=== PATIENT | male | born 1970 | race African-American/Black ===

== ENCOUNTER 2022-07-15 20:45 | Inpatient (IN) | payer BC ==
[2022-07-15] MEDS ORDERED: ACETAMINOPHEN 1000 MG/100 ML BAG IVPB ONE (22:25)
[2022-07-15] MEDS ORDERED: SODIUM CHLORIDE 1,000 ML IV STA (22:25)
[2022-07-15] MEDS ORDERED: ACETAMINOPHEN INJECTION 100 ML IVPB ONE (22:35)
[2022-07-15 22:42] LABS: BASO % 0.2 % (0-2.0); HEMATOCRIT 50.7 % (35.4-49); HEMOGLOBIN 16.3 GM/dL (11.7-16.9); MCH 26.9 pg (25.7-33.7); MCHC 32.1 g/dl (32.0-35.9); MEAN CELL VOLUME 83.8 fl (80-96); MEAN PLT VOLUME 9.3 fl (7.5-11.1); MONO % 7.7 % (3.8-10.2); NEUT % 86.1 % (42.8-82.8); PLATELET COUNT 282 10^3/uL (134-434); RBC 6.05 M/mm3 (4.00-5.60); RDW 14.9 % (11.9-15.9); WHITE BLOOD COUNT 15.1 K/mm3 (4.0-10.0)
[2022-07-15 23:04] LABS: ALBUMIN 3.2 g/dl (3.4-5.0); BLOOD UREA NITROGEN 24.8 mg/dL (7-18); CALCIUM 9.6 mg/dL (8.5-10.1)
[2022-07-15 23:08] LABS: CREATININE 1.8 mg/dL (0.55-1.3)
[2022-07-15 23:10] LABS: BILIRUBIN,TOTAL 0.9 mg/dL (0.2-1); TOT PROT 7.8 g/dl (6.4-8.2)
[2022-07-15 23:38] LABS: ANISOCYTOSIS 1+; MACROCYTOSIS 0; TEAR DROP CELLS 2+
[2022-07-16] MEDS ORDERED: SODIUM CHLORIDE 1,000 ML IV SCH (01:15)
[2022-07-16 01:39] LABS: INR 1.33 (0.83-1.09); PROTHROMBIN TIME (PATIENT) 15.4 SEC (9.7-13.0)
[2022-07-16 01:44] LABS: EPI CELLS >36 /uL (0-25.1); HYALINE CASTS 77 /uL (0-3.1); URINE APPEARANCE TURBID; URINE BILIRUBIN 1+ (NEGATIVE); URINE COLOR ORANGE; URINE GLUCOSE (UA) NEGATIVE (NEGATIVE); URINE KETONE TRACE (NEGATIVE); URINE LEUK ESTERASE TRACE (NEGATIVE); URINE NITRITE NEGATIVE (NEGATIVE); URINE PROTEIN 2+ (NEGATIVE); URINE WBC 127 /uL (0-25.8)
[2022-07-16] MEDS ORDERED: LACTATED RINGERS SOLUTION 1,000 ML IV SCH ×3 (03:30→13:47)
[2022-07-16 05:18] VITALS: BMI 49.1
[2022-07-16] MEDS ORDERED: HEPARIN NA (PORCINE) 5,000 UNITS/ML 1ML VIAL SQ SCH (06:00)
[2022-07-16] MEDS: INSULIN SLIDING SCALE (NOVOLOG) 1 VIAL SQ SCH ×4 (06:14→21:24)
[2022-07-16] MEDS ORDERED: ONDANSETRON 4 MG/2 ML VIAL IVPUSH PRN ×2 (08:24→13:47)
[2022-07-16] MEDS ORDERED: PROMETHAZINE HCL 25 MG/1 ML VIAL IVPB PRN ×2 (08:24→13:47)
[2022-07-16] MEDS ORDERED: ROCURONIUM BROMIDE 50 MG/5 ML SYRINGE ONE ×2 (08:37→11:23)
[2022-07-16] MEDS ORDERED: MIDAZOLAM HCL 2 MG/2 ML SINGLE DOSE VIAL ONE (08:37)
[2022-07-16] MEDS ORDERED: PROPOFOL 20 ML ONE ×3 (08:37→12:20)
[2022-07-16] MEDS ORDERED: GLYCOPYRROLATE 0.2 MG/1 ML VIAL ONE ×2 (08:39→12:03)
[2022-07-16 08:46] LABS: URINE BACTERIA MODERATE /uL (0-1359); URINE RBC 32 /uL (0-23.9)
[2022-07-16] MEDS ORDERED: BUPIVACAINE HCL/PF 0.5% (5MG/ML) 10 ML VIAL ONE (08:51)
[2022-07-16] MEDS ORDERED: cefOXitin SODIUM 2 GM VIAL (RESTRICTED TO ID) IVPB ONE ×2 (09:27→09:50)
[2022-07-16] MEDS ORDERED: SODIUM CHLORIDE 0.9% P/F 10 ML VIAL IJ ONE (09:50)
[2022-07-16] MEDS ORDERED: DEXAMETHASONE SOD PHOSPHATE 4 MG/1 ML VIAL ONE (09:55)
[2022-07-16] MEDS ORDERED: ONDANSETRON 4 MG/2 ML VIAL ONE (09:55)
[2022-07-16] MEDS ORDERED: NEOSTIGMINE METHYLSULFATE 0.5 MG/1 ML - 10 ML MDV ONE (12:04)
[2022-07-16] MEDS ORDERED: NALOXONE HCL 0.4 MG/ML VIAL ONE (12:04)
[2022-07-16] MEDS ORDERED: ACETAMINOPHEN INJECTION 100 ML IVPB ONE (12:05)
[2022-07-16] MEDS ORDERED: BUPIVACAINE HCL/PF 0.5% (5MG/ML) 10 ML VIAL IJ ONE ×2 (12:36)
[2022-07-16] MEDS ORDERED: DOCUSATE SODIUM 100 MG CAPSULE (FP) PO PRN (13:11)
[2022-07-16 15:33] LABS: HEMATOCRIT 43.7 % (35.4-49); HEMOGLOBIN 14.3 GM/dL (11.7-16.9); MCH 27.4 pg (25.7-33.7); MCHC 32.7 g/dl (32.0-35.9); MEAN CELL VOLUME 83.7 fl (80-96); PLATELET COUNT 247 10^3/uL (134-434); RBC 5.22 M/mm3 (4.00-5.60); RDW 15.1 % (11.9-15.9); WHITE BLOOD COUNT 6.5 K/mm3 (4.0-10.0)
[2022-07-16] MEDS: SODIUM CHLORIDE 1,000 ML IV SCH (15:42)
[2022-07-16 15:54] LABS: CALCIUM 8.2 mg/dL (8.5-10.1)
[2022-07-16 15:56] LABS: BLOOD UREA NITROGEN 25.7 mg/dL (7-18)
[2022-07-16] MEDS: oxyCODONE HCL 5 MG TABLET PO PRN ×2 (15:58→20:36)
[2022-07-16 15:59] LABS: CREATININE 1.2 mg/dL (0.55-1.3)
[2022-07-16] MEDS: ACETAMINOPHEN 1000 MG/100 ML BAG IVPB SCH (18:30)
[2022-07-17] MEDS: ACETAMINOPHEN 1000 MG/100 ML BAG IVPB SCH ×4 (00:52→18:14)
[2022-07-17] MEDS: SODIUM CHLORIDE 1,000 ML IV SCH ×3 (03:16→22:53)
[2022-07-17] MEDS: INSULIN SLIDING SCALE (NOVOLOG) 1 VIAL SQ SCH ×4 (06:07→21:34)
[2022-07-17] MEDS: TAMSULOSIN HCL 0.4 MG CAP PO SCH (07:56)
[2022-07-17] MEDS: oxyCODONE HCL 5 MG TABLET PO PRN ×3 (08:00→21:27)
[2022-07-17 10:43] LABS: HEMATOCRIT 42.2 % (35.4-49); HEMOGLOBIN 14.1 GM/dL (11.7-16.9); MCH 27.7 pg (25.7-33.7); MCHC 33.3 g/dl (32.0-35.9); MEAN CELL VOLUME 83.1 fl (80-96); MEAN PLT VOLUME 9.3 fl (7.5-11.1); PLATELET COUNT 299 10^3/uL (134-434); RBC 5.08 M/mm3 (4.00-5.60); RDW 15.5 % (11.9-15.9); WHITE BLOOD COUNT 9.8 K/mm3 (4.0-10.0)
[2022-07-17 10:44] LABS: BLOOD UREA NITROGEN 19.2 mg/dL (7-18); CALCIUM 8.4 mg/dL (8.5-10.1); MAGNESIUM 2.5 mg/dL (1.8-2.4)
[2022-07-17 10:48] LABS: PHOSPHOROUS 2.1 mg/dL (2.5-4.9); TOT PROT 6.5 g/dl (6.4-8.2)
[2022-07-17 10:50] LABS: BILIRUBIN,TOTAL 1.3 mg/dL (0.2-1)
[2022-07-17 10:51] LABS: ALBUMIN 2.5 g/dl (3.4-5.0)
[2022-07-17] MEDS: NYSTATIN 100000 UNIT/GM TOPICAL OINTMENT 15 GM TUBE TP SCH ×3 (11:58→21:33)
[2022-07-17] MEDS ORDERED: POTASSIUM PHOSPHATE 30 MM in SODIUM CHLORIDE 500 ML IVPB ONE (14:15)
[2022-07-17] MEDS: HEPARIN NA (PORCINE) 5,000 UNITS/ML 1ML VIAL SQ SCH (21:27)
[2022-07-18] MEDS: ACETAMINOPHEN 1000 MG/100 ML BAG IVPB SCH ×4 (00:09→19:51)
[2022-07-18] MEDS: oxyCODONE HCL 5 MG TABLET PO PRN ×4 (02:32→17:01)
[2022-07-18] MEDS ORDERED: TRIMETHOBENZAMIDE HCL 200MG/2ML INJ IM ONE (02:32)
[2022-07-18] MEDS: INSULIN SLIDING SCALE (NOVOLOG) 1 VIAL SQ SCH ×4 (06:01→21:16)
[2022-07-18] MEDS: TAMSULOSIN HCL 0.4 MG CAP PO SCH (09:58)
[2022-07-18] MEDS: HEPARIN NA (PORCINE) 5,000 UNITS/ML 1ML VIAL SQ SCH ×2 (09:58→21:11)
[2022-07-18 10:47] LABS: HEMATOCRIT 44.8 % (35.4-49); HEMOGLOBIN 14.4 GM/dL (11.7-16.9); MCHC 32.2 g/dl (32.0-35.9); MEAN CELL VOLUME 83.8 fl (80-96); PLATELET COUNT 354 10^3/uL (134-434); RBC 5.35 M/mm3 (4.00-5.60); RDW 15.4 % (11.9-15.9); WHITE BLOOD COUNT 12.3 K/mm3 (4.0-10.0)
[2022-07-18 11:12] LABS: ALBUMIN 2.5 g/dl (3.4-5.0); CALCIUM 8.7 mg/dL (8.5-10.1); MAGNESIUM 2.8 mg/dL (1.8-2.4)
[2022-07-18 11:16] LABS: BILIRUBIN,TOTAL 0.8 mg/dL (0.2-1); CREATININE 0.8 mg/dL (0.55-1.3)
[2022-07-18] MEDS: NYSTATIN 100000 UNIT/GM TOPICAL OINTMENT 15 GM TUBE TP SCH ×2 (11:17→21:16)
[2022-07-18 11:18] LABS: TOT PROT 6.7 g/dl (6.4-8.2)
[2022-07-18] MEDS ORDERED: NAPH,MB-DB/K PH,MBDB POWDER PACKET PO ONE (12:30)
[2022-07-19] MEDS: ACETAMINOPHEN 1000 MG/100 ML BAG IVPB SCH ×4 (00:08→20:49)
[2022-07-19] MEDS: INSULIN SLIDING SCALE (NOVOLOG) 1 VIAL SQ SCH ×4 (06:09→21:56)
[2022-07-19 08:40] LABS: HEMATOCRIT 43.4 % (35.4-49); HEMOGLOBIN 14.3 GM/dL (11.7-16.9); MCH 27.3 pg (25.7-33.7); MCHC 32.8 g/dl (32.0-35.9); MEAN CELL VOLUME 83.2 fl (80-96); MEAN PLT VOLUME 9.5 fl (7.5-11.1); PLATELET COUNT 367 10^3/uL (134-434); RBC 5.22 M/mm3 (4.00-5.60); RDW 15.2 % (11.9-15.9); WHITE BLOOD COUNT 12.8 K/mm3 (4.0-10.0)
[2022-07-19] MEDS: TAMSULOSIN HCL 0.4 MG CAP PO SCH (08:55)
[2022-07-19] MEDS: HEPARIN NA (PORCINE) 5,000 UNITS/ML 1ML VIAL SQ SCH ×2 (09:00→21:57)
[2022-07-19] MEDS: NYSTATIN 100000 UNIT/GM TOPICAL OINTMENT 15 GM TUBE TP SCH ×2 (09:01→22:36)
[2022-07-19 09:09] LABS: ALBUMIN 2.5 g/dl (3.4-5.0); BLOOD UREA NITROGEN 14.2 mg/dL (7-18); CALCIUM 8.5 mg/dL (8.5-10.1); MAGNESIUM 2.7 mg/dL (1.8-2.4)
[2022-07-19 09:13] LABS: CREATININE 0.8 mg/dL (0.55-1.3); PHOSPHOROUS 1.9 mg/dL (2.5-4.9); TOT PROT 6.3 g/dl (6.4-8.2)
[2022-07-19 09:14] LABS: BILIRUBIN,TOTAL 0.7 mg/dL (0.2-1)
[2022-07-19 09:26] LABS: ANISOCYTOSIS 0; MACROCYTOSIS 0
[2022-07-19] MEDS: NAPH,MB-DB/K PH,MBDB POWDER PACKET PO SCH ×2 (10:25→21:54)
[2022-07-19] MEDS ORDERED: INSULIN (NOVOLOG) ASPART 100 UNITS/ML 10ML VIAL ONE (21:07)
[2022-07-20] MEDS: ACETAMINOPHEN 1000 MG/100 ML BAG IVPB SCH ×4 (01:20→19:41)
[2022-07-20] MEDS: oxyCODONE HCL 5 MG TABLET PO PRN (03:24)
[2022-07-20] MEDS: INSULIN SLIDING SCALE (NOVOLOG) 1 VIAL SQ SCH ×4 (06:45→21:21)
[2022-07-20 08:40] LABS: BLOOD UREA NITROGEN 14.5 mg/dL (7-18); MAGNESIUM 2.5 mg/dL (1.8-2.4)
[2022-07-20 08:41] LABS: HEMOGLOBIN 14.4 GM/dL (11.7-16.9); MCH 27.2 pg (25.7-33.7); MCHC 32.8 g/dl (32.0-35.9); MEAN CELL VOLUME 82.9 fl (80-96); MEAN PLT VOLUME 9.3 fl (7.5-11.1); PLATELET COUNT 389 10^3/uL (134-434); RBC 5.31 M/mm3 (4.00-5.60); RDW 15.4 % (11.9-15.9); WHITE BLOOD COUNT 12.3 K/mm3 (4.0-10.0)
[2022-07-20 08:43] LABS: CREATININE 0.8 mg/dL (0.55-1.3); PHOSPHOROUS 2.9 mg/dL (2.5-4.9)
[2022-07-20] MEDS: TAMSULOSIN HCL 0.4 MG CAP PO SCH (09:18)
[2022-07-20] MEDS: HEPARIN NA (PORCINE) 5,000 UNITS/ML 1ML VIAL SQ SCH ×2 (09:18→21:14)
[2022-07-20] MEDS: NAPH,MB-DB/K PH,MBDB POWDER PACKET PO SCH ×2 (09:18→21:14)
[2022-07-20] MEDS: NYSTATIN 100000 UNIT/GM TOPICAL OINTMENT 15 GM TUBE TP SCH ×2 (09:24→21:14)
[2022-07-20 10:40] LABS: ANISOCYTOSIS 0; HELMET CELLS 0; HOWELL-JOLLY BODIES 0; MACROCYTOSIS 0; OVALOCYTE 0; ROULEAU 0; SICKELED CELLS 0; TARGET CELLS 0; TEAR DROP CELLS 0; TOXIC GRANULATION 0
[2022-07-21] MEDS: ACETAMINOPHEN 1000 MG/100 ML BAG IVPB SCH ×3 (01:35→12:16)
[2022-07-21 04:14] VITALS: RESP 18
[2022-07-21] MEDS: INSULIN SLIDING SCALE (NOVOLOG) 1 VIAL SQ SCH ×3 (06:09→16:50)
[2022-07-21] MEDS: TAMSULOSIN HCL 0.4 MG CAP PO SCH (08:23)
[2022-07-21] MEDS: HEPARIN NA (PORCINE) 5,000 UNITS/ML 1ML VIAL SQ SCH (09:01)
[2022-07-21] MEDS: NYSTATIN 100000 UNIT/GM TOPICAL OINTMENT 15 GM TUBE TP SCH (09:02)
[2022-07-21] MEDS: NAPH,MB-DB/K PH,MBDB POWDER PACKET PO SCH (09:02)
[2022-07-21 10:39] LABS: HEMATOCRIT 42.6 % (35.4-49); HEMOGLOBIN 14.3 GM/dL (11.7-16.9); MCH 27.5 pg (25.7-33.7); MCHC 33.5 g/dl (32.0-35.9); MEAN CELL VOLUME 82.2 fl (80-96); MEAN PLT VOLUME 8.9 fl (7.5-11.1); PLATELET COUNT 454 10^3/uL (134-434); RBC 5.18 M/mm3 (4.00-5.60); WHITE BLOOD COUNT 11.6 K/mm3 (4.0-10.0)
[2022-07-21 11:02] LABS: BLOOD UREA NITROGEN 12.3 mg/dL (7-18)
[2022-07-21 11:03] LABS: CALCIUM 9.3 mg/dL (8.5-10.1)
[2022-07-21 11:04] LABS: MAGNESIUM 2.4 mg/dL (1.8-2.4)
[2022-07-21 11:05] LABS: CREATININE 0.7 mg/dL (0.55-1.3); PHOSPHOROUS 3.1 mg/dL (2.5-4.9)
[2022-07-21 13:26] VITALS: BP 150/91; PULSE 93; TEMP 98.2
== END 2022-07-21 17:45 | disposition home or self-care (01) | DRG 853 ==
LOC: JER 20:45 → JERBED 07-16 01:16 → J6S 07-16 04:57
PROVIDERS: ADMIT Internal Medicine; ATTEND Internal Medicine
PROC: 0DTJ4ZZ Resection of Appendix, Percutaneous Endoscopic Approach (ICD-10-PCS; principal; 2022-07-16 08:30)
DX: A41.9 Sepsis, unspecified organism (principal); K35.32 Acute appendicitis with perforation, localized peritonitis, and gangrene, without abscess; B49 Unspecified mycosis; N17.9 Acute kidney failure, unspecified; Z68.42 Body mass index [BMI] 45.0-49.9, adult; N40.0 Benign prostatic hyperplasia without lower urinary tract symptoms; E11.65 Type 2 diabetes mellitus with hyperglycemia; Z86.16 Personal history of COVID-19; E66.01 Morbid (severe) obesity due to excess calories
CPT/HCPCS: 36415; 74176-TC; 80048; 80053; 80061; 81003; 82570; 82962; 83036; 83690; 83735; 84100; 84156; 84443; 84484; 85025; 85027; 85610; 86850; 86900; 86901; 87070; 87075; 87076; 87086; 87186; 87205; 88304-TC; 93005; 93010; 94010; 94760; 99285-25; C9803-CS; J1644; U0003; U0005

== ENCOUNTER 2022-07-29 23:34 | Emergency (ER) | payer BC ==
[2022-07-29 23:47] VITALS: BP 139/88; PULSE 90; RESP 18; TEMP 99.3; BMI 48.8
== END 2022-07-30 01:59 | disposition home or self-care (01) ==
LOC: JER 23:34
DX: R22.43 Localized swelling, mass and lump, lower limb, bilateral (principal)
CPT/HCPCS: 93970-TC; 99284-25

== ENCOUNTER 2023-11-06 10:01 | Emergency (ER) | payer OTHER, BC ==
[2023-11-06 10:08] VITALS: BP 164/89; PULSE 91; RESP 20; TEMP 98; BMI 51.2
[2023-11-06] MEDS ORDERED: ACETAMINOPHEN 500 MG TABLET (FP) ONE (11:27)
[2023-11-06] MEDS ORDERED: IBUPROFEN 400 MG TABLET (FP) PO ONE (11:27)
[2023-11-06] MEDS: IBUPROFEN 400 MG TABLET (FP) PO ONE (11:32)
[2023-11-06] MEDS: ACETAMINOPHEN 500 MG TABLET (FP) PO ONE (11:32)
== END 2023-11-06 15:26 | disposition home or self-care (01) ==
LOC: JERFT 10:01
DX: S80.912A Unspecified superficial injury of left knee, initial encounter (principal); M25.462 Effusion, left knee; X50.1XXA Overexertion from prolonged static or awkward postures, initial encounter
CPT/HCPCS: 73562-TC-LT-FY; 73700-TC-RT; 99284-25